=== PATIENT | male | born 1965 | race American Indian/Alaskan Native ===

== ENCOUNTER 2018-10-23 11:46 | Emergency (ER) | payer OTHER ==
[~2018-10-23] VITALS: Ht 185.4 cm; Wt 99.8 kg
[~2018-10-23 11:46] MED LIST: AUGMENTIN 875-1 EACH PO; METFORMIN HCL500 MG PO
== END 2018-10-23 13:10 | disposition home or self-care (01) ==
LOC: ED 11:46
DX: H11.32 Conjunctival hemorrhage, left eye (principal); I10 Essential (primary) hypertension; E11.9 Type 2 diabetes mellitus without complications; F17.200 Nicotine dependence, unspecified, uncomplicated
CPT/HCPCS: 99283

== ENCOUNTER 2020-08-27 09:31 | Emergency (ER) | payer OTHER ==
[~2020-08-27] VITALS: Ht 185.4 cm; Wt 111.1 kg
[2020-08-27] MEDS ORDERED: ZESTRIL20 MG PO (11:07)
[2020-08-27] MEDS ORDERED: CEPHALEXIN500 M1 PO (13:04)
== END 2020-08-27 13:22 | disposition home or self-care (01) ==
LOC: ED 09:31
DX: S91.332A Puncture wound without foreign body, left foot, initial encounter (principal); W22.8XXA Striking against or struck by other objects, initial encounter; E11.9 Type 2 diabetes mellitus without complications; I10 Essential (primary) hypertension; F17.200 Nicotine dependence, unspecified, uncomplicated; Z79.899 Other long term (current) drug therapy
CPT/HCPCS: 73630; 99283-25

== ENCOUNTER 2022-01-09 21:38 | Inpatient (IN) | payer OTHER ==
[~2022-01-09] VITALS: Ht 180.3 cm; Wt 113.7 kg
[~2022-01-09 21:38] MED LIST changes: +CEPHALEXIN500 M1 PO; +ZESTRIL20 MG PO
--- NOTE | 2022-01-10 02:05 | NUR ---
PATIENT ARRIVED TO UNIT VIA STRETCHER. PATIENT AMBULATED TO HOSPITAL BED INDEPENDENTLY. ORIENTED TO ROOM AND CALL LIGHT. PATIENT VOIDED IN BEDSIDE URINAL. ANSWERED ALL ADMIT QUESTIONS APPROPRIATELY. ARRIVED ON ROOM AIR WITH SATS > 92%. HEART RATE IN THE LOW 100'S. PO LOPRESSOR STARTED. EDUCATED PATIENT ON MEDICATION ACTIONS AND TREATMENT. EDUCATED PATIENT ON AFIB AND CHF DIAGNOSIS. ALL QUESTIONS ANSWERED. BED IN LOW POSITION AND CALL LIGHT IN REACH.
--- NOTE | 2022-01-10 03:01 | NUR ---
PATIENT AMBULATED INDEPENDENTLY TO THE BATHROOM. HR IN THE 110-120'S. PATIENT TRIED TO HAVE A BM BUT WAS UNSUCCESSFUL. AMBULATED BACK TO BED. CALL LIGHT IN REACH.
--- NOTE | 2022-01-10 06:06 | NUR ---
PATIENT RESTING IN BED WITH EYES CLOSED. RESPIRATIONS EVEN AND UNLABORED. CALL LIGHT IN REACH AND CAN MAKE NEEDS KNOWN. HR 80-90'S AT REST.
--- NOTE | 2022-01-10 07:30 | NUR ---
REPORT RECIEVED. ECHO IS BEING DONE AT BEDSIDE.
--- NOTE | 2022-01-10 08:00 | NUR ---
ASSESSMENT DONE. DENIES PAIN, STATES HE FEEL MUCH BETTER TODAY. DENIES SHORTNESS OF BREATH. SITTING UP AT BEDSIDE TO EAT BREAKFAST. FAMILY MEMBER IN ROOM. REMAINS IN AFIB WITH OCC PVC'S.
--- NOTE | 2022-01-10 09:00 | NUR ---
TOOK BREAKFAST FAIR. DENIES NAUSEA.
--- NOTE | 2022-01-10 09:30 | NUR ---
AMBULATED TO BR TO ATTEMPT HAVE BM, NO BM, DID HAVE ONE UNMEASURED VOID. WITH AMBULATION, DENIES SHORTNESS OF BREATH WITH EXERTION.
--- NOTE | 2022-01-10 09:53 | EKG ---
[facility] [address] [facility] [place] [address] Signed Atrial fibrillation with rapid ventricular response Abnormal ECG No previous ECGs available Confirmed by DOMINIQUE WATTS MD ([id number]) on 01/10/2022 9:53:03 AM Electronically Signed By: DOMINIQUE WATTS MD 01/10/22 0953 PATIENT NAME: TAMEKAARLIN RAY Electrocardiogram DATE OF : 63 PHYSICIAN: DOMINIQUE WATTS MD REPORT #: [id number] REPORT IS CONFIDENTIAL AND NOT TO BE RELEASED WITHOUT AUTHORIZATION
--- NOTE | 2022-01-10 11:30 | NUR ---
UP TO BR TO HAVE FORMED MED SIZED BROWN STOOL, ALSO HAD ONE UNMEASURED VOID. BACK TO BED W/O INCIDENT. SLIGHT SHORTNESS OF BREATH WITH AMBULATION. HR WITH EXERTION 105.
[2022-01-10] MEDS ORDERED: MULTI VITAMIN1 EACH PO (11:52)
--- NOTE | 2022-01-10 11:52 | NUR ---
MED REC COMPLETE
--- NOTE | 2022-01-10 12:30 | NUR ---
TOOK LUNCH WELL. HR AT REST < 100.
--- NOTE | 2022-01-10 12:44 | NUR ---
NAPPING, NO DISTRESS NOTED.
--- NOTE | 2022-01-10 13:15 | NUR ---
SLEEPING, APNEA PERIODS NOTED TO >25 SECONDS. O2 SATS DOWN TO MID 70'S. WOKE PATIENT TO TAKE PO/IV MEDICATIONS.
--- NOTE | 2022-01-10 15:00 | NUR ---
SITTING UP AT BEDSIDE TALKING WITH . PATIENT STATES HE FEELS LIKE HE ATE TO MUCH FOR LUNCH, C/O MILD ABD DISCOMFORT.
--- NOTE | 2022-01-10 16:00 | NUR ---
ASSESSMENT UNCHANGED. STATES HE DOES GET SHORT OF BREATH AT TIMES. O2 SATS MID 90'S. DENIES CHEST PAIN
--- NOTE | 2022-01-10 19:58 | NUR ---
PATIENT AMBULATED TO THE BATHROOM INDEPENDENTLY. VOIDED 200MLS URINE YELLOW URINE. PATIENTSITTING ON THE EDGE OF THE BED. DENIES SOB OR PAIN AT THIS TIME. HAS AN OCCASIONAL NON PRODUCTIVE COUGH. CALL LIGHT IN REACH. DENIES NAY NEEDS AT THIS TIME.
--- NOTE | 2022-01-10 21:00 | NUR ---
PATIENT REPORTED FEELING SHORT OF BREATH. SATS DROPING INTO THE LOW 80'S WHILE SLEEPING. 2L OXYGEN VIA NASAL CANULA PLACED ON PATIENT. RT NOTIFIED. SATS NOW IN THE 90'S.
--- NOTE | 2022-01-10 23:04 | NUR ---
PATIENT WITH PERIODS OF APNEA DURING SLEEP; AROUND 20 SECONDS. PATIENT REPORTS FEELING SOB AND ANXIOUS. PATIENT SITTING AT THE EDGE OF THE BED AND STATES, "IT FEELS LIKE I CANT MY BREATH." DR WATTS CALLED WITH [facility]. HE WILL ORDER MORPHINE, LASIX AND WANTS THE PATIENT ON CPAP. ATUL WITH RT NOTIFIED.
--- NOTE | 2022-01-11 01:00 | NUR ---
PATIENT RESTING BACK IN BED WITH EYES CLOSED. HR 80S TO 90S. APPEARS TO BE NO NEEDS AT THIS TIME. CALL LIGHT WITHIN REACH.
--- NOTE | 2022-01-11 01:38 | NUR ---
PATIENT WOKE UP TO TAKE PO MED. REPORTS FEELING LIKE THE CPAP MACHINE HAS HELP ALOT. PATIENT APPEARS TO BE RESTING MORE COMFORTABLY WITH CPAP ON. CALL LIGHT AND BELONGINGS IN REACH. SATS REMAIN > 92% WITH NO PERIODS OF APNEA NOTED SINCE BEING ON CPAP.
--- NOTE | 2022-01-11 03:14 | NUR ---
PATIENT REQUESTS THAT CPAP BE TAKEN OFF. HE STATED, "I COULD FEEL MYSLEF STARTING TO FREAK OUT AND I WANTED TO RIP IT OFF." CPAP REMOVED. PATIOENT REPORTS THIS IS THE TIME HE NORMALLY GETS UP FOR WORK AND WANTS TO SIT AWKE IN BED. EDUCATED ON MEDICATIONS AVAILABLE IF HE FEELS SOB. PATIENT CONTINUED TO HAVE PERIODS OF APNEA WHILE SLEEPING. CURRENTLY ON ROOM AIR WITH SATS 94%. USING URINAL TO VOID CLEAR YELLOW URINE.
--- NOTE | 2022-01-11 06:05 | NUR ---
PATIENT RESTING BED WITH EYES CLOSED. CALL LIGHT IN REACH. VS STABLE.
--- NOTE | 2022-01-11 07:47 | NUR ---
CARE OF PATIENT RESUMED BY THIS RN. PT SITTING UP ON EDGE OF BED AND APPEARS TO BE BREATHING WELL. PT STATES HE IS FEELING BETTER OVERALL AND IS NOT WANTING TO OVEREAT THIS AM. PT DENIES PAIN. PT DISCUSSES HIS NIGHT OF ANXIETY, AND HOW THE MEDICATIONS AND THE CPAP MACHINE BOTH HELPED HIM THROUGH IT. PLAN OF CARE DISCUSSED. ASSESSMENT COMPLETE. FAINT CRACKLES IN RIGHT LOWER BASE, OTHERWISE LUNGS ARE CLEAR. PT REMAINS ON 2 L NC AT THIS TIME AND SP02 IS 97%. WILL TITRATE DOWN TO OFF IF TOLERATED. CONTINUE TO MONITOR.
--- NOTE | 2022-01-11 12:32 | NUR ---
DR. WATTS IN TO SEE PATIENT AT THIS TIME. PLAN OF CARE BEING DISCUSSED.
--- NOTE | 2022-01-11 13:22 | NUR ---
pt voided in urinal 250 ml, attempted to have a bm, stated he felt like he needed to but did not.
--- NOTE | 2022-01-11 14:10 | NUR ---
PATIENT RESTING AT THIS TIME IN BED. HR IN THE 90-100s. NEXT SCHEDULED DOSE OF METOPROLOL 75 MG GIVEN. PT CONTINUES TO VOID TO URINAL W/O DIFFICULTY. OVERALL PT STATES HE IS STILL FEELING BETTER. WILL CONTINUE TO MONITOR.
--- NOTE | 2022-01-11 19:48 | NUR ---
PATIENT ASSESSMENT COMPLETED. PATIENT SITTING ON THE EDGE OF THE BED. REPORTS HAVING EPISODES OF SOB WHERE HE SITS UP TO CATCH HIS BREATH. HE REPORTS THESE EPISODES OF SOB CAUSE HIM TO FEEL ANXIOUS. DENIES PAIN. ON 2LPM VIA NC. VS STABLE. DENIES NEEDS AT THIS TIME.
--- NOTE | 2022-01-11 23:11 | NUR ---
PATIENT RESTING IN BED WITH EYES CLOSED. PERIODS OF APNEA OBSERVED WHILE SLEEPING. CALL LIGHT IN REACH AND CAN MAKE NEEDS KNOWN.
--- NOTE | 2022-01-12 03:31 | NUR ---
PATIENT SITTING ON THE EDGE OF THE BED. REPORTS FEELING BETTER THIS MORNING. STATED, "I'M READY TO GET MY DAY STARTED." DENIES PAIN OR SOB. REPORTS SLEEPING WELL. USES URINAL TO VOID. CALL LIGHT IN REACH AND CAN MAKE NEEDS KNOWN.
--- NOTE | 2022-01-12 09:34 | NUR ---
PATIENT RESTING UPON INITIAL ASSESSMENT, SLEEPING ALMOST ON HIS STOMACH. SP02 IS 93-94% ON ROOM AIR. DISCUSSED CHF WARNING SIGNS WITH HIM AT LENGTH, AND VERBALIZES UNDERSTANDING. AM MEDS GIVEN. PT REMAINS IN AFIB HR 80s. PT ALSO GIVEN DOSE OF ELIQUIS AND DISCUSSED HIS BLOOD THINNER. PT FEELING MUCH BETTER COMPARED TO WHEN HE CAME IN.
[2022-01-12] MEDS ORDERED: ELIQUIS5 MG PO (11:53)
[2022-01-12] MEDS ORDERED: NICOTINE LOZENGE4 MG BUCCAL (11:53)
[2022-01-12] MEDS ORDERED: TOPROL XL100 MG PO (11:54)
[2022-01-12] MEDS ORDERED: LOSARTAN POTASS25 MG PO (11:55)
[2022-01-12] MEDS ORDERED: TORSEMIDE20 MG PO (11:56)
[2022-01-12] MEDS ORDERED: POTASSIUM CHLO10 MEQ PO (12:19)
--- NOTE | 2022-01-12 14:33 | NUR ---
PATIENT DISCHARGED AT 1336 TO HOME. PT WAS GIVEN HIS 1400 DOSE OF METOPROLOL BEFORE D/C HOME. PATIENT GIVEN LOTS OF EDUCATION REGARDING CHF AND AFIB, BOTH OF WHICH ARE NEW DIAGNOSESE FOR PATIENT. PHARMACIST ALSO PROVIDING LENGTHY INFO TO HIM REGARDING NEW MEDICATIONS. PT WILL NEED TO FOLLOW UP WITH PCP AND MAKE HIS OWN [facility]. PT UNDERSTANDING OF ALL OF THIS. ALL BELONGINGS SENT HOME WITH PATIENT.
== END 2022-01-12 13:35 | disposition home or self-care (01) | DRG 291 ==
LOC: ED 21:38 → CCU 01-10 01:25
PROVIDERS: ADMIT Internal Medicine; ATTEND Internal Medicine
DX: I11.0 Hypertensive heart disease with heart failure (principal); I50.23 Acute on chronic systolic (congestive) heart failure; I48.0 Paroxysmal atrial fibrillation; I27.20 Pulmonary hypertension, unspecified; R73.03 Prediabetes; F15.10 Other stimulant abuse, uncomplicated; G47.30 Sleep apnea, unspecified; F17.210 Nicotine dependence, cigarettes, uncomplicated; Z20.822 Contact with and (suspected) exposure to COVID-19; I34.0 Nonrheumatic mitral (valve) insufficiency
CPT/HCPCS: 36415; 71045; 80048; 80053; 83036; 83735; 83880; 84484; 85025; 85379; 85610; 87502; 93005; 93010; 93306; 94660; 96361; 96374; 96375; 96376; 99285-25; A9270; C9803; J1650; J1940; J2270; J2405; J3475; J7030; U0003

== ENCOUNTER 2023-01-14 06:43 | Day surgery (SDC) | payer OTHER ==
[2023-01-13 09:10] VITALS: BP 124/83
[~2023-01-14] VITALS: Ht 180.3 cm; Wt 119.5 kg
[~2023-01-14 06:43] MED LIST changes: +ELIQUIS5 MG PO; +LOSARTAN POTASS25 MG PO; +MULTI VITAMIN1 EACH PO; +NICOTINE LOZENGE4 MG BUCCAL; +POTASSIUM CHLO10 MEQ PO; +TOPROL XL100 MG PO; +TORSEMIDE20 MG PO
[2023-01-14 06:58] VITALS: BP 133/93
--- NOTE | 2023-01-14 08:30 | NUR ---
01/14/23 0830 China Newman 0888-PATIENT ARRIVED TO PACU ON 10L MASK ORAL AIRWAY IN PLACE NONAROUSABLE. PATIENT LAYING LEFT LATERAL IVF INFUSING. AFIB HR 110'S. WITH PVC'S. ABDOMEN ROUND AND SOFT.
[2023-01-14 09:18] VITALS: BP 157/98
--- NOTE | 2023-01-14 10:49 | OR ---
[facility] [address] [place], [place] [address] Signed DATE OF OPERATION: 01/14/2023 SURGEON: Renee Hayden MD PREOPERATIVE DIAGNOSIS: Screening. POSTOPERATIVE DIAGNOSES: 1. 7 mm pedunculated polyp at 10 cm in the right posterior midline of the rectum (snare, tattoo). 2. 3 mm polyp at 10 cm in the rectum (cauterized). 3. 4 mm polyp at 38 cm in sigmoid colon. 4. 6 mm sessile polyp at 75 cm in the splenic flexure (snare, clip). 5. 4 mm polyp at cecum behind the ileocecal valve. 6. 4 mm polyp at hepatic flexure. PROCEDURES: 1. Colonoscopy with snare polypectomy, hot biopsy, clip x1 and injection of tattoo x1. 2. Rigid proctoscopy. INDICATIONS: Arlin is a 57-year-old gentleman, asked to see me for his initial screening colonoscopy. He has no lower GI complaints. There is no family history of colon cancer or polyps. He does have a significant history particularly methamphetamines in the past. He was in heart failure along with atrial fibrillation. His ejection fraction was low as 20% to 25%. He has been off methamphetamines now for at least 3-1/2 years. His left ventricular ejection fraction is now up to 35% to 40%. 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 He said he has no dyspnea on exertion and is able to walk without any shortness of breath. He also has a very full round face with sleep apnea. Consequently, we did ask for monitored anesthesia care with good results with infusion of propofol. In that regard, he did have preoperative blood work and an EKG showing his atrial fibrillation. In the office, I had given him a pamphlet on colonoscopy. We had reviewed it together. There is risk including, but not limited to gas bloating, crampy abdominal pain, bleeding, perforation requiring surgery, and missed diagnosis. He had expressed understanding and wished to proceed. We did have him hold the apixaban for 5 days prior to the procedure. That worked out well. PROCEDURE NOTE: Arlin was taken into our endoscopy suite and placed in the left lateral decubitus position. He was given monitored anesthesia care with propofol infusion per nurse Electronically Signed By: RENEE HAYDEN MD 01/14/23 1049 PATIENT NAME: ARLIN ENGLISH OPERATIVE REPORT DATE OF : 63 REPORT #: [id number] PHYSICIAN: RENEE HAYDEN MD PCP: BRENNAN DELACRUZ REPORT IS CONFIDENTIAL AND NOT TO BE RELEASED WITHOUT AUTHORIZATION 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 A digital rectal exam was performed. He had good sphincter tone. No external hemorrhoids. There were no masses. His prostate is starting to become a little indurated. The adult colonoscope had been introduced and advanced all around into the mid right colon. It took just a little extra abdominal compression in order to get the scope down into the cecum itself. He had a very good prep. We could easily see the appendiceal orifice and ileocecal valve. He had a tiny polyp immediately behind the ileocecal valve and the cecum. It was easily grasped and destroyed completely with the help of hot biopsy forceps. The scope was then slowly withdrawn. We took pictures throughout for photodocumentation. There was no diverticulosis. We used the snare at 75 cm as well as back at 10 cm. We did use a clip at 75 cm to help bring that mucosa back together. That polyp was a little more sessile in nature. In the rectum, we also cauterized a tiny polyp at 10 cm and destroyed it completely. That was just to the side of the pedunculated polyp. We went ahead and put a tattoo on either side of that pedunculated polyp. The scope was then retroflexed and really no additional pathology noted above the anal canal. We then inserted the rigid proctoscope. It took just a few minutes to find a tattoo in the posterior midline at 10 cm. It may be slightly off to the right but more or less in the posterior midline. After this, the gas was allowed to escape and the rigid proctoscope was removed. Arlin tolerated the procedure quite well. RECOMMENDATIONS: I will see Arlin back in my office in 7 to 14 days to review his results. He will resume the apixaban in one week. He can resume his other chronic medications today. Renee Hayden MD [facility]/JASMINAL /[id number] cc: Renee Hayden MD [facility] Electronically Signed By: RENEE HAYDEN MD 01/14/23 1049 PATIENT NAME: ARLIN ENGLISH OPERATIVE REPORT DATE OF : 63 REPORT #: [id number] PHYSICIAN: RENEE HAYDEN MD PCP: BRENNAN DELACRUZ REPORT IS CONFIDENTIAL AND NOT TO BE RELEASED WITHOUT AUTHORIZATION [facility] [address] [place] [address] Signed Copies: RENEE HAYDEN MD ~ Electronically Signed By: RENEE HAYDEN MD 01/14/23 1049 PATIENT NAME: ARLIN ENGLISH OPERATIVE REPORT DATE OF : 63 REPORT #: [id number] PHYSICIAN: RENEE HAYDEN MD PCP: BRENNAN DELACRUZ REPORT IS CONFIDENTIAL AND NOT TO BE RELEASED WITHOUT AUTHORIZATION
--- NOTE | 2023-01-16 15:32 | PATH ---
[facility] [address] [facility] [place], [place] [address] Signed SPECIMEN(S): A COLON POLYP AT 10 CM SPECIMEN(S): B COLON POLYP AT 38 CM SPECIMEN(S): C SPLENIC FLEXURE POLYP AT 75 CM SPECIMEN(S): D CECUM COLON POLYP SPECIMEN(S): E HEPATIC FLEXURE POLYP SPECIMEN SOURCE: A. COLON POLYP AT 10 CM B. COLON POLYP AT 38 CM C. SPLENIC FLEXURE POLYP AT 75 CM D. CECUM COLON POLYP E. HEPATIC FLEXURE POLYP CLINICAL HISTORY: Screening. Postop: Polyps FINAL PATHOLOGIC DIAGNOSIS: A. Colon polyp at 10 cm: - Hyperplastic polyp (multiple fragments). B. Colon polyp at 38 cm: - Benign colonic mucosa, negative for specific diagnostic abnormality. C. Splenic flexure polyp at 75 cm: - Tubular adenoma (multiple fragments). - Hyperplastic polyp (one fragment). D. Cecum colon polyp: - Hyperplastic polyp (one fragment). E. Hepatic flexure polyp: - Tubular adenoma (one fragment). [facility] MICROSCOPIC EXAMINATION: Histologic sections of all submitted blocks are examined by light microscopy. These findings, together with the gross examination, support the pathologic diagnosis. GROSS DESCRIPTION: A. The specimen, labeled and designated "Zita Hyman " and designated on the requisition "colon (NOS) polypectomy at 10 cm," is received in formalin and consists of 2 peralta soft polypoid tissue fragments measuring 1.0 x 0.6 x 0.4 cm in greatest dimension. The resection margins are inked orange and [place] green the specimens are trisected and PATIENT NAME: ARLIN HYMAN PATHOLOGY DATE OF : 63 REPORT #: [id number] PHYSICIAN: MONCHO THIBODEAUX PCP: BRENNAN DELACRUZ REPORT IS CONFIDENTIAL AND NOT TO BE RELEASED WITHOUT AUTHORIZATION [facility] [address] [place], [place] [address] Signed submitted entirely in (A1). B. The specimen, labeled and designated "Lavadour, A, " and designated on the requisition "colon (NOS) polypectomy at 38 cm," is received in formalin and consists of 1 peralta soft tissue fragment measuring 0.3 x 0.4 cm is submitted entirely in (B1). C. The specimen, labeled and designated "Lavadour, A, colon, splenic flexure polypectomy at 75 cm," is received in formalin and consists of 6 peralta-brown soft polypoid tissue fragments measuring 1.0 x 0.8 cm in greatest dimension, the largest polypoid tissue fragment is inked blue at the resection margin trisected and submitted entirely, all specimens are submitted entirely in (C1). D. The specimen, labeled and designated "Lavadour, A, colon, cecum polypectomy," is received in formalin and consists of 1 peralta-brown soft tissue fragment measuring 0.2 x 0.4 cm is submitted entirely in (D1). E. The specimen, labeled and designated "Lavadour, A, colon, hepatic flexure polypectomy," is received in formalin and consists of 1 peralta soft tissue fragment measuring 0.2 x 0.6 cm and is submitted entirely in (E1). MMA (under the direct supervision of a pathologist) The Gross Description was prepared using a voice recognition system. The report was reviewed for accuracy; however, sound-alike word errors, addition and/or deletions may occur. If there is any question about this report, please contact Client Services. PERFORMING LABORATORY: Technical component was performed by [facility], [address] [place] [id number] (CLIA# [id number]). Professional interpretation was performed by [email or web address], [address] [place] [address], [place] [address] (CLIA#: [id number]). Diagnostician: Enrique Irwin MD Pathologist Electronically Signed 01/16/2023 Copies: ~ PATIENT NAME: ARLIN HYMAN [facility] DATE OF : 63 REPORT #: [id number] PHYSICIAN: [id number] PCP: BRENNAN DELACRUZ REPORT IS CONFIDENTIAL AND NOT TO BE RELEASED WITHOUT AUTHORIZATION
== END 2023-01-14 09:27 | disposition home or self-care (01) ==
LOC: OPS 06:43 → DS 06:43 → OPS 08:15 → DS 09:00 → OPS 09:27 → DS 09:45 → OPS 09:45
PROVIDERS: ATTEND Colon & Rectal Surgery
PROC: 0DBL8ZZ Excision of Transverse Colon, Via Natural or Artificial Opening Endoscopic (ICD-10-PCS; 2023-01-14)
PROC: 0DBN8ZZ Excision of Sigmoid Colon, Via Natural or Artificial Opening Endoscopic (ICD-10-PCS; 2023-01-14)
PROC: 3E0H8GC Introduction of Other Therapeutic Substance into Lower GI, Via Natural or Artificial Opening Endoscopic (ICD-10-PCS; 2023-01-14)
PROC: 0D5P8ZZ Destruction of Rectum, Via Natural or Artificial Opening Endoscopic (ICD-10-PCS; 2023-01-14)
PROC: 0DBC8ZZ Excision of Ileocecal Valve, Via Natural or Artificial Opening Endoscopic (ICD-10-PCS; principal; 2023-01-14 08:15)
DX: Z12.11 Encounter for screening for malignant neoplasm of colon (principal); E66.9 Obesity, unspecified; I50.9 Heart failure, unspecified; I48.91 Unspecified atrial fibrillation; I10 Essential (primary) hypertension; E78.5 Hyperlipidemia, unspecified; Z68.32 Body mass index [BMI] 32.0-32.9, adult; K63.5 Polyp of colon; D12.3 Benign neoplasm of transverse colon
CPT/HCPCS: 00812; J2704; J7121